=== PATIENT | female | born 1955 | race Two or more races ===

== ENCOUNTER 2019-09-30 07:04 | Emergency (ER) | payer MEDICAID ==
[~2019-09-30] VITALS: Ht 162.6 cm; Wt 74.8 kg
[2019-09-30 07:21] VITALS: BP 159/79
--- NOTE | 2019-09-30 07:40 | NUR ---
STREP AND RAPID INFULENZA SWAB SENT TO LAB
== END 2019-09-30 09:10 | disposition home or self-care (01) ==
LOC: ER 07:04
DX: J02.9 Acute pharyngitis, unspecified (principal); R21 Rash and other nonspecific skin eruption; R59.0 Localized enlarged lymph nodes
CPT/HCPCS: 71045-TC; 86403-TC; 87070-TC

== ENCOUNTER 2019-11-20 10:30 | Emergency (ER) | payer MEDICAID ==
[~2019-11-20] VITALS: Ht 162.6 cm; Wt 74.8 kg
[2019-11-20 10:32] VITALS: BP 175/88
--- NOTE | 2019-11-20 10:40 | NUR ---
AT BEDSIDE FOR EVAL.
--- NOTE | 2019-11-20 10:51 | NUR ---
WEIGH MACHINE OPERATOR AT BEDSIDE FOR XRAY.
--- NOTE | 2019-11-20 11:17 | NUR ---
Patient discharged to home in stable condition. Written and verbal after care instructions given. Patient verbalizes understanding of instruction.
== END 2019-11-20 11:18 | disposition home or self-care (01) ==
LOC: ER 10:34
DX: R09.82 Postnasal drip (principal); R05 Cough
CPT/HCPCS: 71045-TC

== ENCOUNTER 2020-11-18 14:38 | Emergency (ER) | payer MEDICAID, OTHER ==
[~2020-11-18] VITALS: Ht 162.6 cm; Wt 69.9 kg
--- NOTE | 2020-11-18 14:46 | NUR ---
Patient came in to the er c/o high blood pressure today. On room air, breathing evenly and unlabored. Connected to the monitor and pulse ox. kept comfortable, will continue to monitor accordingly.
[2020-11-18] MEDS ORDERED: BENAZEPRIL HCL 10 MG TABLET PO ONE (15:00)
[2020-11-18] MEDS ORDERED: BENAZEPRIL HCL 10 MG TABLET ONE (15:07)
[2020-11-18] MEDS ORDERED: BENA20TA9 PO (15:12)
[2020-11-18 15:27] VITALS: BP 140/90
--- NOTE | 2020-11-18 15:28 | NUR ---
Patient discharged to home in stable condition. Written and verbal after care instructions given. Patient verbalizes understanding of instruction.
== END 2020-11-18 15:28 | disposition home or self-care (01) ==
LOC: ER 14:41
DX: I10 Essential (primary) hypertension (principal)

== ENCOUNTER 2021-09-19 22:52 | Inpatient (IN) | payer OTHER ==
[~2021-09-19] VITALS: Ht 162.6 cm; Wt 69.9 kg
[~2021-09-19 22:52] MED LIST: BENA20TA9 PO
--- NOTE | 2021-09-19 23:15 | NUR ---
PT BIB C/O MIDSTERNAL CHEST TIGHNESS, BURNING SENSATION & BURPING /10 PAIN. PT A/OX4. TOLERATING R/A WELL WITH NO SOB. PT AMBULATORY. CONNECTED PT TO POX AND MONITOR.
--- NOTE | 2021-09-19 23:18 | NUR ---
Shay guerrero in ED - 09/19/21 at 2324 by DENISE RN SPOKE TO DOM FROM POISON CONTROL REGARDING PATIENT. NO NEW RECOMMENDATIONS . WILL CONTINUE TO MONITOR PT.
--- NOTE | 2021-09-19 23:24 | NUR ---
EMT AT BEDSIDE FOR EKG
[2021-09-19] MEDS ORDERED: MAG HYDROX/AL HYDROX/SIMETH 30 ML UDC ONE (23:26)
[2021-09-19] MEDS ORDERED: LIDOCAINE VISCOUS 2% UD 15 ML UDC ONE ×2 (23:26→23:28)
[2021-09-19] MEDS ORDERED: LIDOCAINE VISCOUS 2% UD 15 ML UDC MM ONE (23:30)
[2021-09-19] MEDS ORDERED: MAG HYDROX/AL HYDROX/SIMETH 30 ML UDC PO ONE (23:30)
[2021-09-20] MEDS ORDERED: NITROGLYCERIN 0.4 MG/TAB BOTTLE SL ONE
[2021-09-20] MEDS ORDERED: ASPIRIN 325 MG TABLET PO ONE
[2021-09-20] MEDS ORDERED: ASPIRIN 325 MG TABLET ONE (00:22)
--- NOTE | 2021-09-20 00:25 | NUR ---
IV LINE ESTABLISHED AT L HAND 20G, BLOOD DRAWN SENT TO LAB
[2021-09-20 00:50] LABS: BASOPHILS # (AUTO) 0.1 K/uL (0.0-0.2); BASOPHILS % (AUTO) 1.1 % (0.0-2.0); EOSINOPHILS % (AUTO) 3.6 % (0.0-6.0); HEMATOCRIT 38 % (33-45); HEMOGLOBIN 12.6 g/dL (11.5-14.8); LYMPHOCYTES % (AUTO) 38.9 % (20.0-44.0); MEAN CORPUSCULAR HGB CONC 33 g/dl (31.0-36.0); MEAN CORPUSCULAR VOLUME 92 fL (82-100); MONOCYTES # (AUTO) 0.7 K/uL (0.1-1.30); MONOCYTES % (AUTO) 8.5 % (2.0-12.0); NEUTROPHILS # (AUTO) 3.7 K/uL (1.8-8.9); NEUTROPHILS % (AUTO) 47.9 % (43.0-81.0); PLATELET COUNT (AUTO) 283 K/uL (150-450); RED BLOOD CELL COUNT(AUTO) 4.14 MIL/uL (4.0-5.2); WHITE BLOOD COUNT (AUTO) 7.8 K/uL (4.3-11.0)
[2021-09-20] MEDS ORDERED: ACETAMINOPHEN 325 MG TABLET ONE ×2 (01:08→12:38)
[2021-09-20] MEDS ORDERED: ACETAMINOPHEN 325 MG TABLET PO ONE (01:30)
--- NOTE | 2021-09-20 01:44 | NUR ---
COVID ANTIGEN SWAB COLLECTED, SENT TO LAB
--- NOTE | 2021-09-20 03:18 | NUR ---
MRSA SWAB COLLECTED, SENT TO LAB
[2021-09-20 07:00] LABS: CARBON DIOXIDE 21 mmol/L (21-32); CHLORIDE 105 mmol/L (98-107); CREATININE 0.8 mg/dL (0.6-1.3); GLUCOSE 83 mg/dL (74-106); POTASSIUM 4.1 mmol/L (3.5-5.1); SODIUM SERUM 141 mmol/L (136-145); UREA NITROGEN, BLOOD 16 mg/dL (7-18)
--- NOTE | 2021-09-20 08:09 | NUR ---
PT RESTING COMFORTABLY IN BED, VSS.
[2021-09-20 10:17] LABS: CALCIUM, SERUM 9.2 mg/dL (8.5-10.1)
--- NOTE | 2021-09-20 11:42 | NUR ---
SPOKE TO DAUGHTER [phone]
--- NOTE | 2021-09-20 12:38 | NUR ---
NURSING SUP GAVE BED. 113.1 TO BE MOVE AT 1500.
[2021-09-20] MEDS ORDERED: Z GUARD REMEDY 4 OZ OINT TP PRN (13:00)
[2021-09-20] MEDS ORDERED: ACETAMINOPHEN 325 MG TABLET PO PRN (13:00)
[2021-09-20] MEDS ORDERED: MAG HYDROX/AL HYDROX/SIMETH 30 ML UDC PO PRN (13:00)
[2021-09-20] MEDS ORDERED: MAGNESIUM HYDROXIDE 30 ML UDC PO PRN (13:00)
[2021-09-20] MEDS ORDERED: MORPHINE SULFATE INJ 2 MG/ML DISP.SYRIN IV PRN (13:00)
[2021-09-20] MEDS ORDERED: HYDROCODONE/APAP 5/325MG TABLET PO PRN (13:00)
[2021-09-20] MEDS ORDERED: ONDANSETRON HCL/PF 4 MG/2 ML VIAL IVP PRN (13:00)
[2021-09-20] MEDS ORDERED: ACETAMINOPHEN 650 MG/20.3 ML UDC PO ONE (13:00)
[2021-09-20] MEDS ORDERED: NITROGLYCERIN 0.4 MG/TAB BOTTLE SL PRN (13:00)
[2021-09-20] MEDS ORDERED: ENOXAPARIN SODIUM 40 MG/0.4 ML DISP.SYRIN SQ SCH (14:00)
--- NOTE | 2021-09-20 14:24 | NUR ---
MICHAEL LEFT CONTACT NUMBER [phone]
--- NOTE | 2021-09-20 15:12 | NUR ---
REPORT GIVEN TO SOON FOR [facility]
--- NOTE | 2021-09-20 19:22 | NUR ---
RN admitting note Received Patient from ER nurse. Patient calm and cooperative and stable at this time.
--- NOTE | 2021-09-20 19:24 | NUR ---
RN closing Notes Patient is resting comfortably and is in no acute distress. Call light and tray table with personal belonging within reach. Patient was maintained throughout shift and vitals remained in patient's baseline. Interventions was completed as needed. All of the patient's needs have been met. Assistance was provided as needed. Pain medications were administered as needed per MD orders. Will endorse to drilling rig operator nurse.
[2021-09-20 20:00] VITALS: BP 140/88
[2021-09-20] MEDS ORDERED: ZOLPIDEM TARTRATE 5 MG TABLET PO PRN (22:00)
[2021-09-21] VITALS: BP 118/65
[2021-09-21 04:00] VITALS: BP 135/76
[2021-09-21 06:18] LABS: BASOPHILS # (AUTO) 0.1 K/uL (0.0-0.2); BASOPHILS % (AUTO) 1.4 % (0.0-2.0); EOSINOPHILS % (AUTO) 4.5 % (0.0-6.0); HEMATOCRIT 39 % (33-45); HEMOGLOBIN 13.2 g/dL (11.5-14.8); LYMPHOCYTES # (AUTO) 2.4 K/uL (0.8-4.8); LYMPHOCYTES % (AUTO) 38.3 % (20.0-44.0); MEAN CORPUSCULAR HGB CONC 34 g/dl (31.0-36.0); MEAN CORPUSCULAR VOLUME 91 fL (82-100); MONOCYTES # (AUTO) 0.5 K/uL (0.1-1.30); MONOCYTES % (AUTO) 7.7 % (2.0-12.0); NEUTROPHILS # (AUTO) 3.1 K/uL (1.8-8.9); NEUTROPHILS % (AUTO) 48.1 % (43.0-81.0); PLATELET COUNT (AUTO) 290 K/uL (150-450); RED BLOOD CELL COUNT(AUTO) 4.32 MIL/uL (4.0-5.2); WHITE BLOOD COUNT (AUTO) 6.4 K/uL (4.3-11.0)
--- NOTE | 2021-09-21 06:24 | NUR ---
RN notes Resting comfortably with no distress noted. Breathing even and unlabored. Room air well tolerated. Vital signs wnl. Alert and oriented x 4, ambulatory. Able to verbalize needs. No complaint of pain or discomfort. Kept clean and dry. Needs attended. Will endorse to next shift for continuity of care.
[2021-09-21 06:37] LABS: MAGNESIUM 2.3 mg/dL (1.8-2.4); PHOSPHORUS 4.5 mg/dL (2.5-4.9); POTASSIUM 3.9 mmol/L (3.5-5.1)
[2021-09-21] MEDS ORDERED: PANTOPRAZOLE 40 MG TABLET.DR PO SCH (07:30)
[2021-09-21 07:37] LABS: THYROID STIMULATING HORMONE 3.555 uIU/mL (0.358-3.74)
[2021-09-21 08:00] VITALS: BP 124/78
--- NOTE | 2021-09-21 08:30 | NUR ---
RN NOTE PATIENT FEELING MUCH BETTER. WANTS TO KNOW WHAT IS NEXT AND WHEN THE MD IS COMING.
[2021-09-21] MEDS ORDERED: ASPIRIN 81 MG TAB.CHEW PO SCH (09:00)
[2021-09-21] MEDS ORDERED: LISINOPRIL (20MG) 20 MG TABLET PO SCH (09:00)
[2021-09-21] MEDS ORDERED: BENAZEPRIL HCL 20 MG TABLET PO SCH (09:00)
[2021-09-21 09:30] VITALS: BP 98/52
--- NOTE | 2021-09-21 09:30 | NUR ---
RN NOTE EXPLAINED TO PATIENT THAT ELECTRONICS COMMODITY MANAGER NEEDS TO CLEAR PATIENT FOR DISCHARGE. RESULTS OF ECHO NOT IN COMPUTER. CONTACTED RADIOLOGY TO GET TEST RESULTED FOR CARDIOLOGY CONSULT.
--- NOTE | 2021-09-21 09:52 | NUR ---
RN NOTE ECHO FROM WEDNESDAY NIGHT NOT RESULTED. CONTACTED RADIOLOGY AND MALLORY TO READ ECHO. TECH SAID HE WILL SPEAK TO WELDER OXYHYDROGEN RADIOLOGIST.
--- NOTE | 2021-09-21 11:30 | NUR ---
RN NOTE MD MADE AWARE PATIENT WANTS TO D/C. CONTACTED STORAGE WORKER TO OK D/C.
[2021-09-21] MEDS ORDERED: ROSU5TAB PO (11:36)
[2021-09-21] MEDS ORDERED: PANT40TA2 PO (11:39)
--- NOTE | 2021-09-21 12:30 | NUR ---
RN CLOSING NOTE PATIENT DISCHARGED TO HOME. PAPERWORK COMPLETED AND SIGNED. ID AND IV SITE REMOVED. PATIENTS CAME AND PICKED HER UP.
== END 2021-09-21 12:34 | disposition home or self-care (01) | DRG 243 ==
LOC: ER 22:55 → TRANSITION 09-20 09:42 → TELE1 09-20 14:54
PROVIDERS: ADMIT Nurse Practitioner Acute Care; ATTEND Nurse Practitioner Acute Care
DX: K21.9 Gastro-esophageal reflux disease without esophagitis (principal); I10 Essential (primary) hypertension; Z20.822 Contact with and (suspected) exposure to COVID-19; Z87.19 Personal history of other diseases of the digestive system; Z98.891 History of uterine scar from previous surgery; Z79.899 Other long term (current) drug therapy; K29.70 Gastritis, unspecified, without bleeding; Z90.49 Acquired absence of other specified parts of digestive tract; Z82.49 Family history of ischemic heart disease and other diseases of the circulatory system
CPT/HCPCS: 36415; 71045-TC; 80048-TC; 80061-TC; 83735-TC; 84100-TC; 84443-TC; 84484-TC; 85025-TC; 87081-TC; 93307-TC; C9803; G0378; J1650

== ENCOUNTER 2022-11-18 08:52 | Emergency (ER) | payer MEDICARE, OTHER ==
[~2022-11-18] VITALS: Ht 162.6 cm; Wt 68.9 kg
[~2022-11-18 08:52] MED LIST changes: +PANT40TA2 PO; +ROSU5TAB PO
[2022-11-18 08:55] VITALS: BP 144/97
--- NOTE | 2022-11-18 08:55 | NUR ---
BIBS C/O SORE THROAT X4 DAYS AND EAR PAIN, HEADACHE X3 DAYS, STATED SHE HAD A FEVER WEDNESDAY OF 101 TOOK 1000MG TYLENOL TODAY AT 0330. ORAL TEMP OF 98.0 UPON ARRIVAL. VITALS ARE WITHIN NORMAL LIMITM NO RESPIRATORY DISTRESS NOTED. AWAITING MD LOZA.
--- NOTE | 2022-11-18 09:07 | NUR ---
DR MCALLISTER AT BEDSIDE FOR EVAL
--- NOTE | 2022-11-18 09:13 | NUR ---
COVID TEST COLLECTED AND SENT
[2022-11-18] MEDS ORDERED: IBUP-1955 PO (09:23)
[2022-11-18] MEDS ORDERED: DEXAMETHASONE SOD PHOSPHATE 10 MG/ML VIAL IM ONE (09:30)
[2022-11-18] MEDS ORDERED: KETOROLAC TROMETHAMINE INJ 30 MG/ML VIAL IM ONE (09:30)
[2022-11-18] MEDS ORDERED: KETOROLAC TROMETHAMINE 15 MG/ML VIAL ONE (09:35)
[2022-11-18] MEDS ORDERED: DEXAMETHASONE SOD PHOSPHATE 10 MG/ML VIAL ONE (09:35)
--- NOTE | 2022-11-18 10:38 | NUR ---
Patient discharged to home in stable condition, ambulating. Written and verbal after care instructions given. Patient verbalizes understanding of instruction.
== END 2022-11-18 10:38 | disposition home or self-care (01) ==
LOC: ER 09:08
DX: J06.9 Acute upper respiratory infection, unspecified (principal); R05.9 Cough, unspecified; R09.81 Nasal congestion; J02.9 Acute pharyngitis, unspecified; I10 Essential (primary) hypertension; E78.5 Hyperlipidemia, unspecified; E11.9 Type 2 diabetes mellitus without complications; Z88.8 Allergy status to other drugs, medicaments and biological substances; Z20.822 Contact with and (suspected) exposure to COVID-19
CPT/HCPCS: 99284; 87426; 96372 ×2; J1100; J1885; C9803

== ENCOUNTER 2022-11-21 14:50 | Emergency (ER) | payer MEDICARE, OTHER ==
[~2022-11-21 14:50] MED LIST changes: +IBUP-1955 PO
--- NOTE | 2022-11-21 15:00 | NUR ---
CALLED IN ED WAITING ROOM NO RESPONSE
--- NOTE | 2022-11-21 15:11 | NUR ---
CALLED IN ED WAITING ROOM NO RESPONSE. LEFT WITHOUT BEING TRIAGE
== END 2022-11-21 15:13 | disposition left against medical advice (07) ==
LOC: ER 14:57
DX: Z53.21 Procedure and treatment not carried out due to patient leaving prior to being seen by health care provider (principal)

== ENCOUNTER 2023-05-08 09:02 | Emergency (ER) | payer MEDICARE, OTHER ==
[~2023-05-08] VITALS: Ht 162.6 cm; Wt 65.8 kg
[2023-05-08 09:57] VITALS: TEMP 98.1
[2023-05-08] MEDS ORDERED: BENZONATATE 100 MG CAPSULE PO ONE ×2 (09:58→10:00)
[2023-05-08 10:21] LABS: RED CELL DISTRIBUTION WIDTH 12.7 % (11.5-15.0)
[2023-05-08 10:26] LABS: CARBON DIOXIDE 25 mmol/L (21-32); CHLORIDE 103 mmol/L (98-107); CREATININE 0.9 mg/dL (0.6-1.3); GLUCOSE 94 mg/dL (74-106); POTASSIUM 3.9 mmol/L (3.5-5.1); SODIUM SERUM 138 mmol/L (136-145); UREA NITROGEN, BLOOD 14 mg/dL (7-18)
[2023-05-08 10:27] LABS: BASOPHILS # (AUTO) 0.1 K/uL (0.0-0.2); BASOPHILS % (AUTO) 1.6 % (0.0-2.0); EOSINOPHILS # (AUTO) 0.7 K/uL (0.0-0.7); EOSINOPHILS % (AUTO) 10.3 % (0.0-6.0); HEMATOCRIT 40 % (33-45); HEMOGLOBIN 13.5 g/dL (11.5-14.8); LYMPHOCYTES # (AUTO) 1.6 K/uL (0.8-4.8); LYMPHOCYTES % (AUTO) 24.4 % (20.0-44.0); MEAN CORPUSCULAR HEMOGLOBIN 30 PG (26.0-33.0); MEAN CORPUSCULAR HGB CONC 34 g/dl (31.0-36.0); MEAN CORPUSCULAR VOLUME 90 fL (82-100); MONOCYTES # (AUTO) 0.6 K/uL (0.1-1.30); MONOCYTES % (AUTO) 8.7 % (2.0-12.0); NEUTROPHILS # (AUTO) 3.6 K/uL (1.8-8.9); PLATELET COUNT (AUTO) 291 K/uL (150-450); RED BLOOD CELL COUNT(AUTO) 4.49 MIL/uL (4.0-5.2); WHITE BLOOD COUNT (AUTO) 6.5 K/uL (4.3-11.0)
[2023-05-08 10:39] LABS: NT-PRO BNP 88 pg/mL (0-125)
[2023-05-08] MEDS ORDERED: BENZ-13 PO (13:20)
[2023-05-08 13:36] VITALS: BP 147/79; O2SAT 98
== END 2023-05-08 13:37 | disposition home or self-care (01) ==
LOC: ER 09:12
DX: R05.9 Cough, unspecified (principal); J02.9 Acute pharyngitis, unspecified; I10 Essential (primary) hypertension; E78.5 Hyperlipidemia, unspecified; E11.9 Type 2 diabetes mellitus without complications; Z98.890 Other specified postprocedural states; Z79.899 Other long term (current) drug therapy; Z88.5 Allergy status to narcotic agent
CPT/HCPCS: 36415; 71045-TC; 80048-TC; 83880; 84484-TC; 85025-TC

== ENCOUNTER 2023-09-06 09:41 | Emergency (ER) | payer BC, OTHER ==
[~2023-09-06] VITALS: Ht 162.6 cm; Wt 64.4 kg
[~2023-09-06 09:41] MED LIST changes: +BENZ-13 PO
[2023-09-06 09:56] VITALS: TEMP 99
[2023-09-06] MEDS ORDERED: FLUT16SP16 BNOSTRILS (11:34)
[2023-09-06 11:51] VITALS: BP 120/85; O2SAT 98
== END 2023-09-06 11:52 | disposition home or self-care (01) ==
LOC: ER 09:41
DX: J06.9 Acute upper respiratory infection, unspecified (principal); R05.9 Cough, unspecified; R09.81 Nasal congestion; I10 Essential (primary) hypertension; E78.5 Hyperlipidemia, unspecified; E11.9 Type 2 diabetes mellitus without complications; Z88.5 Allergy status to narcotic agent; Z79.899 Other long term (current) drug therapy
CPT/HCPCS: 71045-TC